=== PATIENT | female | born 1990 | race Caucasian/White ===

== ENCOUNTER 2019-08-28 11:25 | Emergency (ER) | payer OTHER, SELFPAY ==
[2019-08-28 11:32] VITALS: BP 122/52; PULSE 62; RESP 16; TEMP 37; O2SAT 100
--- NOTE | 2019-08-28 12:16 | ED.GENADULT ---
HPI - General Adult General Chief complaint: Skin/Abscess/Foreign Body Stated complaint: rash all over body Time Seen by Provider: 08/28/19 12:16 Source: patient and RN notes reviewed Mode of arrival: ambulatory Limitations: no limitations History of Present Illness HPI narrative: 28-year-old female presents with complaints of diffused raised red rash with intense itching for the past 14-21 days. Health feet lotion without relief. Recently moved into a new home and has an animal. No other family members with rash. Denies new changes in personal hygiene products or laundry detergent. No new foods or medications. No swelling, burning, bleeding, or drainage. Denies fever, chills, headaches, weakness, fatigue, myalgia, facial swelling, or tongue swelling. Denies chest pain or dyspnea. The patient reports they do not have a new or worsening cough or shortness of breath. Denies chest pain. The patient reports they do not have any rhinorrhea, congestion, sore throat, nausea, vomiting, abdominal pain, and diarrhea. Tolerating po intake well. Denies recent traveling. Denies concerns for COVID-19 or exposures been home since [id number] order except for essential household needs, working, and return home. At this time, patient is not suspected of having COVID-19. Some parts of this dictation were generated by voice recognition software and may contain typographical and/or grammatical inaccuracies. Related Data Allergies Allergy/AdvReac Type Severity Reaction Status Date / Time No Known Allergies Allergy Verified 08/28/19 11:54 Review of Systems Review of Systems: Narrative: CONSTITUTIONAL: Denies fever, chills, sweats. EYES: Denies visual changes, redness, discharge. ENT: Denies rhinorrhea, congestion, sore throat, otalgia. CARDIOVASCULAR: Denies chest pain, palpitations, edema. RESPIRATORY: Denies dyspnea, wheezing, cough. GASTROINTESTINAL: Denies abdominal pain, nausea, vomiting, diarrhea. GENITOURINARY: Denies dysuria, hematuria, abnormal discharge SKIN: Complains of diffused raised red rash with intense itching. Denies drainage. MUSCULOSKELETAL: Denies acute back pain, joint pain, or myalgia. NEUROLOGIC: Denies numbness or focal weakness. PSYCHIATRIC: Denies anxiety or depression. All other systems reviewed & are unremarkable except as noted in HPI and below. [facility] Past Medical History Medical History (Updated 08/29/19 @ 00:00 by Amrita Woodruff) Asthma Surgical History Surgical History (Updated 08/28/19 @ 12:23 by SUZIE Anderson) No significant past surgical history Family History Family History (Updated 08/28/19 @ 12:24 by SUZIE Anderson) Father Alive and well Mother Alive and well Social History Social History (Updated 08/28/19 @ 12:25 by SUZIE Anderson) Smoking status: Never smoker Second hand tobacco smoke exposure: Yes Alcohol intake: never Substance use: current Substance use type: marijuana Living arrangements: with family Gender identity (if verbalized by the patient): Female Comments At time of signature, agree with nurse past medical, surgical, social, and family history. There is no relevant family history pertinent to the presenting complaint. Exam Narrative: Exam Narrative: GENERAL: This is a well-nourished, well-developed patient, in no apparent distress. Talking in full sentences without deficit and ambulate with steady gait without dyspnea. HEAD: normocephalic, atraumatic. EYES: PERRL. Sclera clear/white. Vision is grossly intact. THROAT: Mucous membranes moist, posterior pharynx clear. NECK: Neck supple, non-tender without lymphadenopathy, masses or thyromegaly. CARDIOVASCULAR: Regular rate and rhythm without murmurs, gallops, or rubs. RESPIRATORY: Clear to auscultation. Breath sounds equal bilaterally. No wheezes, rales, or rhonchi. GASTROINTESTINAL: Abdomen soft, non-tender, nondistended. Bowel sounds are active. No hepato-splen
== END 2019-08-28 12:35 | disposition home or self-care (01) ==
PROVIDERS: Emergency Provider Nurse Practitioner Family; PCP Emergency Medicine
DX: B86 Scabies (principal)
CPT/HCPCS: 81025; 99213; G0463

== ENCOUNTER 2020-09-02 14:03 | Emergency (ER) | payer OTHER, SELFPAY ==
[2020-09-02 14:08] VITALS: BP 119/93; PULSE 107; RESP 20; TEMP 36.3; O2SAT 100
--- NOTE | 2020-09-02 15:06 | ED.WOUNDLAC ---
HPI - Wound/Laceration General Chief Complaint: Wound/Laceration Stated Complaint: LACERATION Time Seen by Provider: 09/02/20 14:12 History of Present Illness HPI narrative: Patient is a 29-year-old female who presents the ER with laceration to the right leg. [place] when she bumped against something causing the laceration. Bleeding began and she was able to control it with pressure and bandages. Unknown last tetanus shot. She has no numbness or tingling. She maintains function and is able to walk. Related Data Allergies Allergy/AdvReac Type Severity Reaction Status Date / Time No Known Allergies Allergy Verified 09/02/20 14:11 Review of Systems Integumentary/Breasts: Skin/Breast: Denies erythema and Denies rash Comments: Leg laceration Neurologic: Denies focal weakness and Denies numbness PMFSH Past Medical History Medical History (Updated 09/02/20 @ 15:23 by Blake Bingham MD) Asthma Surgical History Surgical History (Updated 08/28/19 @ 12:23 by SUZIE Anderson) No significant past surgical history Family History Family History (Updated 08/28/19 @ 12:24 by SUZIE Anderson) Father Alive and well Mother Alive and well Social History Social History (Updated 08/28/19 @ 12:25 by SUZIE Anderson) Smoking status: Never smoker Second hand tobacco smoke exposure: Yes Alcohol intake: never Substance use: current Substance use type: marijuana Gender identity (if verbalized by the patient): Female Exam Narrative: Exam Narrative: GENERAL: Well-appearing, well-nourished, and in no acute distress. HEAD: Normocephalic, atraumatic. EXTREMITIES: Normal range of motion. No edema. SKIN: Warm, dry, no rash. 5 cm laceration superficial right lateral thigh. NEURO: Alert and oriented x3. PSYCH: Normal mood and affect. Course Course Emergency Course: Wound repaired. Tetanus updated. Discharge home. Vital Signs Vital signs: Vital Signs Temperature 97.4 F L 09/02/20 14:08 Pulse Rate 107 H 09/02/20 14:08 Respiratory Rate 20 09/02/20 14:08 Blood Pressure 119/93 H 09/02/20 14:08 Pulse Oximetry 100 09/02/20 14:08 Temperature 97.4 F L 09/02/20 14:08 Pulse Rate 107 H 09/02/20 14:08 Respiratory Rate 20 09/02/20 14:08 Blood Pressure 119/93 H 09/02/20 14:08 Pulse Oximetry 100 09/02/20 14:08 Procedures Laceration Laceration 1: Date: 09/02/20 Time: 15:00 Site: lower extremity Side (If applicable): right Size (cm): 5 Description: linear and clean Depth: simple, single layer Local Anesthetic: lidocaine 1% and with epi Amount of anesthesia used (mL): 8 Pre-repair: irrigated ====== Skin Level ====== Skin layer closed with: latia Number of sutures: 8 ====== Subcutaneous Layer ====== ====== Muscle Layer ====== ====== Tendon Layer ====== Discharge Plan Discharge Clinical Impression: Laceration Patient Disposition: Home, Self-Care Condition: Stable Instructions: Laceration (ED), Staple Care (ED) Additional Instructions: Return to the ER if your wound is red and hot, it is draining pus, you have fever over 100.4 ?F, you have additional concerns. You will need to have your latia removed on 09/16/2020. You may do this at home with a staple remover or you may follow-up with your primary care doctor or urgent care. Prescriptions: No Action permethrin 5 % cream 1 applic TOPICAL Q14D Qty: 60 RF: 1 Follow-up/Referrals: PHYSICIAN,S[employer]IOR [employer] [Primary Care Provider] - Mamadou Woods MD [Physician] - 2 Weeks
[2020-09-02] MEDS: TETANUS,DIPHTHERIA,AC PERTUSSIS ADULT (0.5 ML) BOOSTRIX IM (15:07)
== END 2020-09-02 15:30 | disposition home or self-care (01) ==
PROVIDERS: Emergency Provider Emergency Medicine
DX: S71.111A Laceration without foreign body, right thigh, initial encounter (principal); J45.909 Unspecified asthma, uncomplicated; Z23 Encounter for immunization; W26.9XXA Contact with unspecified sharp object(s), initial encounter
CPT/HCPCS: 12002; 90471; 90715; 99282